=== PATIENT | male | born 1995 | race African-American/Black ===

== ENCOUNTER 2018-04-06 09:02 | Emergency (ER) | payer MEDICAID ==
[~2018-04-06] VITALS: Ht 175.3 cm; Wt 59.9 kg
[2018-04-06 10:26] VITALS: BP 154/92
== END 2018-04-06 11:34 | disposition home or self-care (01) ==
LOC: ER 09:02
DX: M54.41 Lumbago with sciatica, right side (principal); K59.00 Constipation, unspecified
CPT/HCPCS: 73502

== ENCOUNTER 2018-04-07 10:44 | Emergency (ER) | payer MEDICAID ==
[~2018-04-07] VITALS: Ht 175.3 cm; Wt 59.9 kg
[2018-04-07 10:55] VITALS: BP 142/81
== END 2018-04-07 12:54 | disposition left against medical advice (07) ==
LOC: ER 10:44
DX: M54.5 Low back pain (principal); Z53.21 Procedure and treatment not carried out due to patient leaving prior to being seen by health care provider
CPT/HCPCS: 72100

== ENCOUNTER → 2018-04-07 | Emergency (ER) | payer MEDICAID | END | disposition left against medical advice (07) | LOC: ER 09:58 | DX: M79.604 Pain in right leg (principal); Z53.21 Procedure and treatment not carried out due to patient leaving prior to being seen by health care provider ==

== ENCOUNTER 2019-01-25 12:48 | Emergency (ER) | payer MEDICAID ==
[~2019-01-25] VITALS: Ht 175.3 cm; Wt 59.0 kg
[2019-01-25 13:03] VITALS: BP 120/87
[2019-01-25] MEDS ORDERED: IBUPROFEN 800 MG TAB PO ONE (14:45)
== END 2019-01-25 14:56 | disposition home or self-care (01) ==
LOC: ER 12:48 → EDBD 12:48 → ER 14:56
DX: G89.29 Other chronic pain (principal); M54.5 Low back pain
CPT/HCPCS: 72100

== ENCOUNTER → 2019-07-17 | Emergency (ER) | payer MEDICAID ==
[~2019-07-17] VITALS: Ht 177.8 cm; Wt 68.0 kg
[~2019-07-17] MED LIST: SODIUM CHLORIDE 0.9% 1,000 ML IV ONE
[2019-07-17 22:09] VITALS: BP 144/67
[2019-07-17 23:07] LABS: Basophils # (auto) 0 10 ^3/uL (0-0.2); Basophils % (auto) 0.5 % (0.0-2.0); Eosinophils # (auto) 0.1 10 ^3/uL (0-0.8); Eosinophils % (auto) 0.5 % (0.0-7.0); Hematocrit 43.1 % (41.0-53.0); Hemoglobin 14.4 g/dL (13.5-17.5); Lymphocytes # (auto) 1.6 10 ^3/uL (0.4-5.4); Lymphocytes % (auto) 16.4 % (10.0-50.0); Mean Corpuscular Hemoglobin 31.3 pg (28.0-32.0); Mean Corpuscular Hgb Conc. 33.5 g/dL (32.0-36.0); Mean Corpuscular Volume 93.5 fL (80.0-100.0); Monocytes # (auto) 0.5 10 ^3/uL (0-1.3); Monocytes % (auto) 5.4 % (0.0-12.0); Neutrophils # (auto) 7.4 10 ^3/uL (1.6-8.6); Neutrophils % (auto) 77.2 % (37.0-80.0); Platelet Count (auto) 136 10^3/uL (140-450); Red Blood Cells 4.61 10^6/uL (4.5-5.90); Red Cell Distribution Width 12.8 % (11.8-14.3); White Blood Cell 9.6 10^3/uL (4.4-10.8)
[2019-07-17 23:26] LABS: Acetaminophen < 2.0 ug/mL (10-30); Potassium 3.9 mmol/L (3.5-5.1); Salicylate 4.2 mg/dL (2.8-20.0)
[2019-07-17 23:33] LABS: BUN/Creatinine Ratio 14.8; Calcium 8.8 mg/dL (8.5-10.1)
[2019-07-17 23:35] LABS: Bilirubin, Total 0.4 mg/dL (0.2-1.0); Total Protein 7.3 g/dL (6.4-8.2)
== END | disposition home or self-care (01) ==
LOC: EDUNIT# 21:58 → EDBD 22:02 → ER 22:07
DX: T42.4X1A Poisoning by benzodiazepines, accidental (unintentional), initial encounter (principal); T40.4X1A Poisoning by other synthetic narcotics, accidental (unintentional), initial encounter; T42.8X1A Poisoning by antiparkinsonism drugs and other central muscle-tone depressants, accidental (unintentional), initial encounter; F41.9 Anxiety disorder, unspecified; F19.90 Other psychoactive substance use, unspecified, uncomplicated; F10.129 Alcohol abuse with intoxication, unspecified; Y90.1 Blood alcohol level of 20-39 mg/100 ml; Y92.89 Other specified places as the place of occurrence of the external cause
CPT/HCPCS: 36415; 80053; 80320; 80329; 85025; 93005; 99284; J7030

== ENCOUNTER 2020-01-02 13:51 | Emergency (ER) | payer MEDICAID ==
[~2020-01-02] VITALS: Ht 175.3 cm; Wt 61.2 kg
[2020-01-02 13:58] VITALS: BP 158/90
== END 2020-01-02 14:14 ==
LOC: ER 13:51
DX: S09.90XA Unspecified injury of head, initial encounter (principal); M54.5 Low back pain; F17.210 Nicotine dependence, cigarettes, uncomplicated; F41.9 Anxiety disorder, unspecified; F12.10 Cannabis abuse, uncomplicated; X58.XXXA Exposure to other specified factors, initial encounter; Y93.89 Activity, other specified; Y92.89 Other specified places as the place of occurrence of the external cause; Y99.8 Other external cause status

== ENCOUNTER 2020-10-07 08:25 | Emergency (ER) | payer MEDICAID ==
[~2020-10-07] VITALS: Ht 175.3 cm; Wt 62.6 kg
[2020-10-07 09:10] VITALS: BP 136/76
[2020-10-07] MEDS ORDERED: KETOROLAC TROMETH 60MG/2ML VIAL IM ONE (09:45)
== END 2020-10-07 09:45 | disposition home or self-care (01) ==
LOC: ER 08:25
DX: M79.10 Myalgia, unspecified site (principal); M54.5 Low back pain; F17.210 Nicotine dependence, cigarettes, uncomplicated
CPT/HCPCS: 72100

== ENCOUNTER 2020-11-15 09:48 | Emergency (ER) | payer MEDICAID ==
[~2020-11-15] VITALS: Ht 175.3 cm; Wt 62.1 kg
[2020-11-15 11:25] VITALS: BP 138/82
== END 2020-11-15 11:24 | disposition home or self-care (01) ==
LOC: ER 09:48
DX: G89.29 Other chronic pain (principal); M54.5 Low back pain; F17.210 Nicotine dependence, cigarettes, uncomplicated

== ENCOUNTER 2020-11-28 11:00 | Emergency (ER) | payer MEDICAID ==
[~2020-11-28] VITALS: Ht 175.3 cm; Wt 60.3 kg
[2020-11-28 11:26] VITALS: BP 143/91
== END 2020-11-28 11:47 | disposition home or self-care (01) ==
LOC: ER 11:00
DX: M54.5 Low back pain (principal); F17.210 Nicotine dependence, cigarettes, uncomplicated; F12.10 Cannabis abuse, uncomplicated; Z76.0 Encounter for issue of repeat prescription